=== PATIENT | male | born 1965 | race African-American/Black ===

== ENCOUNTER 2022-04-15 10:24 | Emergency (ER) | payer MEDICAID ==
[~2022-04-15] VITALS: Ht 167.6 cm; Wt 84.0 kg
[2022-04-15 10:32] VITALS: BP 124/67
[2022-04-15 12:23] LABS: BASOPHILS % 0.2 % (0.0-2.0); EOSINOPHILS % 1.1 % (0.0-5.0); HEMATOCRIT. 43.1 % (42.0-52.0); HEMOGLOBIN. 14.2 g/dL (14.0-18.0); LYMPHOCYTES % 18.5 % (20.0-50.0); MEAN CORPUSCULAR HEMOGLOBIN 28.5 pg (28.0-32.0); MEAN CORPUSCULAR VOLUME 86.6 fL (80.0-94.0); MEAN PLATELET VOLUME 8.5 fl (7.4-10.4); MONOCYTES % 9.7 % (2.0-8.0); NEUTROPHILS % 70.5 % (40.0-76.0); PLATELET 259 x1000/uL (130-400); RED BLOOD CELL COUNT 4.98 mill/uL (4.7-6.1); RED CELL DISTRIBUTION WIDTH 14.9 % (11.6-14.6)
[2022-04-15 12:34] LABS: CHLORIDE 100 mEq/L (98-107)
[2022-04-15] MEDS ORDERED: BACITRACIN ZINC OINT UDPKT TOP ONE (13:00)
[2022-04-15] MEDS ORDERED: LIDOCAINE HCL/EPINEPHRINE 1%-EPI 1:100,000 20 ML VIAL INFIL ONE (13:00)
[2022-04-15] MEDS ORDERED: PHEN51CR12 RC (13:47)
[2022-04-15] MEDS ORDERED: LIDO30CR TP (13:47)
[2022-04-15] MEDS ORDERED: HYDR30CR80 TP (13:47)
[2022-04-15] MEDS ORDERED: SENN-257 MT (13:51)
[2022-04-15] MEDS ORDERED: DOCU-138 MT (13:51)
== END 2022-04-15 14:04 | disposition home or self-care (01) ==
LOC: ER 10:24
DX: K64.4 Residual hemorrhoidal skin tags (principal)
CPT/HCPCS: 36415; 80053; 85025; 99283; J3490; Z7610